=== PATIENT | female | born 1950 | race Caucasian/White ===

== ENCOUNTER → 2018-10-17 | Outpatient (CLI) | payer MEDICARE, OTHER ==
--- NOTE | 2018-10-17 12:07 | RADIOLOGY REPORT (SQ) ---
EXAM DESCRIPTION: MRI RT LOWER JOINT WITHOUT COMPLETED DATE/TIME: 10/17/2018 11:31 am REASON FOR STUDY: R HIP PAIN M25.551 PAIN IN RIGHT HIP COMPARISON: None. TECHNIQUE: Righthip images acquired and stored on PACS. Multiplanar images to include fat sensitive sequences as T1, fluid sensitive sequences as T2/STIR and gradient echo sequences. Large FOV fat and fluid sensitive sequences include pelvis and opposite hip. LIMITATIONS: None. FINDINGS: BONE CORTEX AND MARROW: No generalized marrow replacement. No occult fracture. No worriso me bone lesions. RIGHT HIP: FEMORAL HEAD: No occult fracture. No osteophytes or subchondral cysts. Normal sphericity of femoral h ead/neck junction. No acetabular dysplasia. No evidence femoroacetabular impingement. Small right hi p joint effusion, with a 2.6 by 1.5 cm synovial cyst protruding off the medial aspect of the joint, t racking between the obturator externus muscle and ischium. This is best demonstrated on small field of view sagittal image 21, and small [id number] coronal image 16. Very mild weight-bearing surfac e are particular cartilage thinning with subcortical edema, sagittal right hip small [id number] im age 16. ACETABULUM: No acetabular dysplasia. No subchondral cysts. LABRUM: There is in the anterior labral tear along the acetabular roofs, with fluid tracking from the tear through the joint capsule in midfoot 5 mm ganglion cyst just lateral to the proximal rectus fem jed tendon. These changes are best shown on small field of view right hip coronal images 8-11, sagi ttal images 10 and 11, and axial images 4-9. TROCHANTER: Trace trochanteric bursal effusion. Mild edema/fluid at the insertions of the gluteus me dius and gluteus minimus. LEFT HIP: Limited evaluation. No worrisome bone lesions. No significant left hip joint effusion. T race trochanteric bursal fluid with mild edema at the insertions of the gluteus medius and gluteus mi nimus. PELVIS, LOWER LUMBAR SPINE, SACROILIAC JOINTS: PELVIS : No insufficiency/stress fractures. No significant degenerative changes. Sacroiliac joints normal. L SPINE: No significant osteophytes or degenerative changes of the visualized lumbar spine. MUSCLES AND SOFT TISSUES: Adductors and piriformis normal. Abductors and greater trochanteric bursa n ormal without edema or fluid. Iliopsoas bursa without fluid. Hamstring attachments without edema or t ear. PELVIC SOFT TISSUES: No masses or adenopathy. SCIATIC NERVE: Identified, without masses or abnormal signal. OTHER: No other significant finding. IMPRESSION: Right hip acetabular labral tear with paralabral cyst. Synovial ganglion cyst protrudin g medially off the right hip joint along the obturator externus muscle. Mild bilateral trochanteric bursitis. TECHNICAL DOCUMENTATION: JOB ID: [id number] [employer]- All Rights Reserved Reading location - IP/workstation name: [email or web address]
== END ==
LOC: RAD 10:43
PROVIDERS: ATTEND Orthopaedic Surgery
DX: M25.551 Pain in right hip (principal); M70.61 Trochanteric bursitis, right hip